=== PATIENT | male | born 1965 | race Caucasian/White ===

== ENCOUNTER 2017-03-21 10:16 | Emergency (ER) | payer SELFPAY ==
[~2017-03-21] VITALS: Ht 175.3 cm; Wt 82.0 kg
[~2017-03-21 10:16] MED LIST: BACT800T5 PO
[2017-03-21 10:19] VITALS: BP 157/77; TEMP 99.5
--- NOTE | 2017-03-21 11:46 | PD ---
HPI Chief Complaint: Injury Time Seen by Provider: 11:46 Travel History International Travel<30 days: No Contact w/Intl Traveler<30days: No Traveled to known affect area: No PFSH Past Medical History Diminished Hearing: No Kidney Stones: Yes Past Surgical History Other Surgery: Yes (stone removal) Social History Alcohol Use: No Tobacco Use: Yes (1.5 PPD) Substance Use: No Allergies-Medications (Allergen,Severity, Reaction): Coded Allergies: No Known Allergies (Unverified , 07/22/15) Reported Meds & Prescriptions Reported Meds & Active Scripts Active Bactrim DS (Sulfamethoxazole-Trimethoprim DS) 1 Tab Tab 1 Tab PO Q12 10 Days Data Data Last Documented VS Vital Signs Date Time Temp Pulse Resp B/P (MAP) Pulse Ox O2 Delivery O2 Flow Rate FiO2 03/21/17 10:19 99.5 110 22 157/77 (103) Orders Orders Elbow, Complete (4 Vws) (03/21/17 11:51) Osorio Crowe Mar 21, 2017 11:46
[2017-03-21 12:40] VITALS: BP 125/77; PULSE 78; RESP 19; TEMP 99.1; O2SAT 96
--- NOTE | 2017-03-21 12:44 | RADRPT ---
EXAM DATE/TIME: 03/21/2017 12:14 [facility] COMPARISON: No previous studies available for comparison. INDICATIONS : Tripped and fell, complains of right elbow pain. MEDICAL HISTORY : None. SURGICAL HISTORY : None. ENCOUNTER: Initial ACUITY: 1 day PAIN SCORE: 10/10 LOCATION: Right elbow FINDINGS: There is deformity at the elbow without obvious fracture. Degenerative changes are noted. CONCLUSION: Limited secondary to deformity, negative for fracture. Mickey Birmingham MD FACR on March 21, 2017 at 12:42 Board Certified Radiologist. This report was verified electronically.
--- NOTE | 2017-03-21 12:47 | PD ---
HPI . right elbow pain Chief Complaint: Injury Time Seen by Provider: 12:38 Travel History International Travel<30 days: No Contact w/Intl Traveler<30days: No Traveled to known affect area: No History of Present Illness HPI 51-year-old male here with complaints of right elbow pain. Patient tells me he was out of his yard working on a car when he actually somehow slipped right elbow. His julito supposedly gave him some medication, thus causing increased drowsiness at this current time. Patient has made a call to his friend reports that the medication was gabapentin 600 mg. The patient has taken 4 tablets. He has no other complaints at this time. PFS Past Medical History Diminished Hearing: No Kidney Stones: Yes Past Surgical History Other Surgery: Yes (stone removal) Social History Alcohol Use: No Tobacco Use: Yes (1.5 PPD) Substance Use: No Allergies-Medications (Allergen,Severity, Reaction): Coded Allergies: No Known Allergies (Unverified , 03/21/17) Reported Meds & Prescriptions Reported Meds & Active Scripts Active Naproxen 500 Mg Tab 500 Mg PO BID Review of Systems General / Constitutional: No: Fever Eyes: No: Visual changes HENT: No: Headaches Cardiovascular: No: Chest Pain or Discomfort Respiratory: No: Shortness of Breath Gastrointestinal: No: Abdominal Pain Genitourinary: No: Dysuria Musculoskeletal: Positive: Pain (right elbow pain ) Skin: No Rash Neurologic: No: Weakness Psychiatric: No: Depression Endocrine: No: Polydipsia Hematologic/Lymphatic: No: Easy Bruising Physical Exam Narrative GENERAL: AAO x 3, no acute distress, Well-nourished, well-developed patient. resting comfortably, awakens when spoken to and answers questions appropriately SKIN: Warm and dry. No visible rashes or bruising. HEAD: Normocephalic and atraumatic. EYES: No scleral icterus. No injection or drainage. ENT: No nasal drainage noted. Mucous membranes pink. Airway patent. NECK: Supple, trachea midline. No JVD. CARDIOVASCULAR: Regular rate and rhythm without murmurs, gallops, or rubs. RESPIRATORY: Breath sounds equal bilaterally. No accessory muscle use. No rhonchi or rales. GASTROINTESTINAL: Abdomen soft, non-tender, nondistended. EXTREMITIES: No cyanosis, right elbow with ++ edema, tender to touch and limited ROM due to pain. BACK: Nontender without obvious deformity. No CVA tenderness. NEURO: CN II-12 intact, PSYCH: AAO x 3, Data Data Last Documented VS Vital Signs Date Time Temp Pulse Resp B/P (MAP) Pulse Ox O2 Delivery O2 Flow Rate FiO2 03/21/17 15:53 83 17 138/78 (98) 95 03/21/17 15:50 Room Air 03/21/17 12:40 99.1 Orders Orders Elbow, Complete (4 Vws) (03/21/17 11:51) Ct Elbow W/O Contrast (03/21/17 ) Complete Blood Count With Diff (03/21/17 13:59) Basic Metabolic Panel (Bmp) (03/21/17 13:59) Westergren Sedimentation Rate (03/21/17 13:59) C-Reactive Protein (Crp) (03/21/17 13:59) Labs Laboratory Tests Test 03/21/17 14:20 White Blood Count 12.0 TH/MM3 Red Blood Count 5.17 MIL/MM3 Hemoglobin 14.9 GM/DL Hematocrit 45.5 % Mean Corpuscular Volume 87.9 FL Mean Corpuscular Hemoglobin 28.8 PG Mean Corpuscular Hemoglobin Concent 32.8 % Red Cell Distribution Width 13.5 % Platelet Count 224 TH/MM3 Mean Platelet Volume 6.8 FL Neutrophils (%) (Auto) 68.8 % Lymphocytes (%) (Auto) 18.5 % Monocytes (%) (Auto) 11.8 % Eosinophils (%) (Auto) 0.4 % Basophils (%) (Auto) 0.5 % Neutrophils # (Auto) 8.2 TH/MM3 Lymphocytes # (Auto) 2.2 TH/MM3 Monocytes # (Auto) 1.4 TH/MM3 Eosinophils # (Auto) 0.1 TH/MM3 Basophils # (Auto) 0.1 TH/MM3 CBC Comment DIFF FINAL Differential Comment Erythrocyte Sedimentation Rate 5 mm/hr Blood Urea Nitrogen 8 MG/DL Creatinine 0.93 MG/DL Random Glucose 102 MG/DL Calcium Level 8.4 MG/DL Sodium Level 137 MEQ/L Potassium Level 3.7 MEQ/L Chloride Level 101 MEQ/L Carbon Dioxide Level 29.7 MEQ/L Anion Gap 6 MEQ/L Estimat Glomerular Filtration Rate 86 ML/MIN C-Reactive Protein 1.34 MG/DL MDM Medical Decision Making Medical Screen Exam Complete: Yes Emergency Medical Condition: Yes Medical Record Reviewed: Yes Differential Diagnosis dislocation, fracture, soft tissue injury, septic arthritis, Narrative Course 51 yr old male here with right elbow pain s/p fall. Imaging ordered. Last Impressions Elbow X-Ray 03/21/17 1151 Signed Impressions: Service Date/Time: Tuesday, March 21, 2017 12:14 - CONCLUSION: Limited secondary to deformity, negative for fracture. Mickey Birmingham MD FACR CT without any abnormality. I discussed the case with my attending. We have ordered labs to assess for possibility of septic arthritis. Case was discussed with my attending Dr. Pan who will disposition the patient. Diagnosis Primary Impression: Elbow pain, right Patient Instructions: General Instructions Scripts Naproxen (Naproxen) 500 Mg Tab 500 MG PO BID, #10 TAB 0 Refills Prov: Yovana Pan MD 03/21/17 Disposition: 01 DISCHARGE HOME Condition: Stable Amy Tom Mar 21, 2017 12:47
--- NOTE | 2017-03-21 13:53 | RADRPT ---
EXAM DATE/TIME: 03/21/2017 13:28 [facility] COMPARISON: No previous studies available for comparison. INDICATIONS : Trauma; right elbow pain. RADIATION DOSE: 19.07 CTDIvol (mGy) MEDICAL HISTORY : None SURGICAL HISTORY : None. ENCOUNTER: Initial ACUITY: 1 day PAIN SCALE: 8/10 LOCATION: Right elbow. TECHNIQUE: Volumetric scanning of the elbow was performed. Using automated exposure control and adjustment of t he mA and/or kV according to patient size, radiation dose was kept as low as reasonably achievable to obtain optimal diagnostic quality images. DICOM format image data is available electronically for r eview and comparison. FINDINGS: Exam is limited by positioning and habitus. Degenerative changes are evident. Displaced fracture is not appreciated. There is no significant joint effusion. CONCLUSION: Degenerative changes, negative for fracture.. Mickey Birmingham MD FACR on March 21, 2017 at 13:50 Board Certified Radiologist. This report was verified electronically.
[2017-03-21 14:46] LABS: AUTOMATED NEUTROPHIL # 8.2 TH/MM3 (1.8-7.7); BASOPHIL # 0.1 TH/MM3 (0-0.2); BASOPHIL % 0.5 % (0.0-2.0); EOSINOPHIL # 0.1 TH/MM3 (0-0.4); EOSINOPHIL % 0.4 % (0.0-4.0); HEMATOCRIT 45.5 % (39.0-51.0); HEMO FLAGS DIFF FINAL; LYMPH % 18.5 % (9.0-44.0); LYMPHOCYTE # 2.2 TH/MM3 (1.0-4.8); MEAN CELL VOLUME 87.9 FL (80.0-100.0); MEAN CORPUSCULAR HEMOGLOBIN 28.8 PG (27.0-34.0); MEAN CORPUSCULAR HGB CONC 32.8 % (32.0-36.0); MONO % 11.8 % (0.0-8.0); NEUT % 68.8 % (16.0-70.0); PLATELET COUNT 224 TH/MM3 (150-450); RED BLOOD COUNT 5.17 MIL/MM3 (4.50-5.90); RED CELL DISTRIBUTION WIDTH 13.5 % (11.6-17.2)
[2017-03-21] MEDS ORDERED: NAPR500T PO (14:58)
--- NOTE | 2017-03-21 14:58 | PD ---
Data Data Last Documented VS Vital Signs Date Time Temp Pulse Resp B/P (MAP) Pulse Ox O2 Delivery O2 Flow Rate FiO2 03/21/17 12:40 18 03/21/17 12:40 99.1 78 125/77 (93) 96 Orders Orders Elbow, Complete (4 Vws) (03/21/17 11:51) Ct Elbow W/O Contrast (03/21/17 ) Complete Blood Count With Diff (03/21/17 13:59) Basic Metabolic Panel (Bmp) (03/21/17 13:59) Westergren Sedimentation Rate (03/21/17 13:59) C-Reactive Protein (Crp) (03/21/17 13:59) Labs Laboratory Tests Test 03/21/17 14:20 White Blood Count 12.0 TH/MM3 Red Blood Count 5.17 MIL/MM3 Hemoglobin 14.9 GM/DL Hematocrit 45.5 % Mean Corpuscular Volume 87.9 FL Mean Corpuscular Hemoglobin 28.8 PG Mean Corpuscular Hemoglobin Concent 32.8 % Red Cell Distribution Width 13.5 % Platelet Count 224 TH/MM3 Mean Platelet Volume 6.8 FL Neutrophils (%) (Auto) 68.8 % Lymphocytes (%) (Auto) 18.5 % Monocytes (%) (Auto) 11.8 % Eosinophils (%) (Auto) 0.4 % Basophils (%) (Auto) 0.5 % Neutrophils # (Auto) 8.2 TH/MM3 Lymphocytes # (Auto) 2.2 TH/MM3 Monocytes # (Auto) 1.4 TH/MM3 Eosinophils # (Auto) 0.1 TH/MM3 Basophils # (Auto) 0.1 TH/MM3 CBC Comment DIFF FINAL Differential Comment [facility] Supervised Visit with MARTHA: Yes Narrative Course The history, exam, and medical decision-making in the associated midlevel provider note were completed with my assistance. I reviewed and agree with the findings presented. I attest that I had a [id number] encounter with the patient on the same day, and personally performed and documented my assessment and findings in the medical record. *My assessment and Findings: This is an 51-year-old male who presents to the emergency department with right elbow pain. He says he fell and landed on his right elbow yesterday. He has moderate severity pain when you range the elbow. He has no obvious effusion or warmth. X-ray was obtained and was limited so a was performed. There is no effusion on the CT to suggest a septic arthritis and there is no occult fracture. I suspect the patient has a contusion. I was a little concerned as he had a low-grade temperature and he was seen earlier this year in the setting of a forearm abscess. He adamantly denies IV drug use and given there is no effusion on the elbow but this reflects septic arthritis. I think he's safe for discharge. Diagnosis Primary Impression: Elbow contusion Qualified Codes: S50.01XA - Contusion of right elbow, initial encounter Patient Instructions: General Instructions Additional Instruction: If you develop swelling, severe pain, numbness or coolness of the arm return to the emergency department. Med/Other Pt SpecificInfo: Prescription(s) given Scripts Naproxen (Naproxen) 500 Mg Tab 500 MG PO BID, #10 TAB 0 Refills Prov: Yovana Pan MD 03/21/17 Disposition: 01 DISCHARGE HOME Condition: Stable Yovana Pan MD Mar 21, 2017 14:58
[2017-03-21 15:14] LABS: BICARBONATE 29.7 MEQ/L (21.0-32.0); POTASSIUM 3.7 MEQ/L (3.5-5.1)
[2017-03-21 15:50] VITALS: BP 138/78; PULSE 83; RESP 17; O2SAT 95
[2017-03-21 15:53] VITALS: BP 138/78
== END 2017-03-21 15:59 | disposition home or self-care (01) ==
LOC: NEPD 10:16
DX: S50.01XA Contusion of right elbow, initial encounter (principal); F17.200 Nicotine dependence, unspecified, uncomplicated; Z87.442 Personal history of urinary calculi; W01.0XXA Fall on same level from slipping, tripping and stumbling without subsequent striking against object, initial encounter; Y92.096 Garden or yard of other non-institutional residence as the place of occurrence of the external cause
CPT/HCPCS: 73080; 73200; 80048; 85025; 85652; 86140; 99285

== ENCOUNTER 2017-06-14 15:10 | Emergency (ER) | payer SELFPAY ==
[~2017-06-14] VITALS: Ht 177.8 cm; Wt 95.0 kg
[~2017-06-14 15:10] MED LIST changes: -BACT800T5 PO; +NAPR500T2 PO
[2017-06-14 15:11] VITALS: BP 121/96; PULSE 95; RESP 18; TEMP 98.2; O2SAT 98
[2017-06-14] MEDS ORDERED: CEPHALEXIN MONOHYDRATE 500 MG CAP PO ONE (15:45)
[2017-06-14] MEDS ORDERED: IBUP-232 PO (15:45)
[2017-06-14] MEDS ORDERED: oxyCODONE/ACETAMINOPHEN 5 MG/325 MG TAB PO ONE (15:45)
[2017-06-14] MEDS ORDERED: PERC5TAB12 PO (15:45)
[2017-06-14] MEDS ORDERED: SULFAMETHOXAZOLE-TRIMETHOPRIM DS 800-160 MG TAB PO ONE (15:45)
[2017-06-14] MEDS ORDERED: CEPH-460 PO (15:45)
[2017-06-14] MEDS ORDERED: BACT800T5 PO (15:45)
[2017-06-14] MEDS ORDERED: MUPI2%T TOPICAL (15:47)
--- NOTE | 2017-06-14 15:47 | PD ---
HPI Chief Complaint: Laceration/Skin Injury Time Seen by Provider: 15:25 Travel History International Travel<30 days: No Contact w/Intl Traveler<30days: No Traveled to known affect area: No History of Present Illness HPI Patient is a 51 year old male who presents to the ER with complaints of laceration to right thigh. patient reports that 4 days ago, he was using a circular saw and accidently cut his right thigh with it. Reports that he used crazy glue to glue together his laceration. Reports that the crazy glue is falling off now and his laceration appears infected. Reports that tetanus is up to date (updated last year). Denies fever/chills. No other c/o. PFSH Past Medical History Diminished Hearing: No Genitourinary: Yes Kidney Stones: Yes Tetanus Vaccination: < 5 Years Influenza Vaccination: No Past Surgical History Other Surgery: Yes (stone removal) Social History Alcohol Use: No Tobacco Use: Yes (1.5 PPD) Substance Use: No Allergies-Medications (Allergen,Severity, Reaction): Coded Allergies: No Known Allergies (Verified Adverse Reaction, Unknown, 06/14/17) Reported Meds & Prescriptions Reported Meds & Active Scripts Active No Active Prescriptions or Reported Medications Review of Systems Except as stated in HPI: all other systems reviewed are Neg General / Constitutional: No: Fever, Chills Eyes: No: Visual changes HENT: No: Headaches Cardiovascular: No: Chest Pain or Discomfort Respiratory: No: Shortness of Breath Gastrointestinal: No: Abdominal Pain Genitourinary: No: Dysuria Musculoskeletal: No: Pain Skin: Positive Other (laceration to right thigh), No Rash Neurologic: No: Weakness Psychiatric: No: Depression Endocrine: No: Polydipsia Hematologic/Lymphatic: No: Easy Bruising Physical Exam Narrative GENERAL: Well-nourished, well-developed patient. SKIN: Focused skin assessment warm/dry. HEAD: Normocephalic. EYES: No scleral icterus. No injection or drainage. NECK: Supple, trachea midline. No JVD or lymphadenopathy. CARDIOVASCULAR: Regular rate and rhythm without murmurs, gallops, or rubs. RESPIRATORY: Breath sounds equal bilaterally. No accessory muscle use. GASTROINTESTINAL: Abdomen soft, non-tender, nondistended. MUSCULOSKELETAL: No cyanosis, or edema. Patient with 5cm linear laceration to right thigh, there is areas of open skin with thick purulent drainage with surrounding erythema BACK: Nontender without obvious deformity. No CVA tenderness. Data Data Last Documented VS Vital Signs Date Time Temp Pulse Resp B/P (MAP) Pulse Ox O2 Delivery O2 Flow Rate FiO2 06/14/17 15:21 17 06/14/17 15:11 98.2 95 121/96 (104) 98 Orders Orders Cephalexin (Keflex) (06/14/17 15:45) Sulfamet-Trimeth Ds 800-160 Mg (Bactrim (06/14/17 15:45) Oxycodone-Acetamin 5-325 Mg (Percocet (06/14/17 15:45) MDM Medical Decision Making Medical Screen Exam Complete: Yes Emergency Medical Condition: Yes Medical Record Reviewed: Yes Interpretation(s) Vital Signs Date Time Temp Pulse Resp B/P (MAP) Pulse Ox O2 Delivery O2 Flow Rate FiO2 06/14/17 15:21 17 06/14/17 15:11 98.2 95 18 121/96 (104) 98 Differential Diagnosis Laceration, infection Narrative Course 51-year-old male who presents to emergency room with complaints of laceration to his right thigh. Patient reports that this happened 4 days ago, he did use superglue to put bring together this laceration. Patient reports that today, superglue was falling off and his laceration appears infected. On evaluation, there is thick yellow purulence draining from his wound site. Discussed with patient at this time, I cannot suture up his laceration as it is 4 days old, it will need to heal by secondary intention. Plan to start patient on antibiotics , he will return to the emergency room in 48 hours for wound check. Signs and symptoms of when to return to the emergency room including fevers, chills was reviewed with patient in detail. Tetanus was updated last year. Diagnosis Primary Impression: Infected laceration Additional Impression: Cellulitis Patient Instructions: General Instructions, Narcotic given in the ED Additional Instructions: Please take all medications as prescribed Return to the emergency room if you develop any fevers or chills or worsening or progressing symptoms Please return to the emergency room in 48 hours for wound check Return to the emergency room as needed Keep wound clean and covered Med/Other Pt SpecificInfo: Prescription(s) given, Wound Care Scripts Mupirocin Topical (Bactroban Topical) 22 Gm Cream 1 APPLIC TOPICAL BID for Mgmt Bacterial Infection, #1 TUBE 0 Refills Prov: Ella Escobedo DO 06/14/17 Oxycodone-Acetaminophen (Percocet) 5-325 mg Tab 1 TAB PO Q6H Y for PAIN, #7 TAB 0 Refills Prov: Ella Escobedo DO 06/14/17 Ibuprofen (Ibuprofen) 600 Mg Tab 600 MG PO Q6H Y for Pain/Inflammation, #40 TAB 0 Refills Prov: Ella Escobedo DO 06/14/17 Cephalexin (Keflex) 500 Mg Cap 500 MG PO Q6H for Infection for 10 Days, #40 CAP 0 Refills Prov: Ella Escobedo DO 06/14/17 Sulfamethoxazole-Trimethoprim (Bactrim DS) 800-160 Mg Tab 1 TAB PO BID for Infection for 10 Days, #20 TAB 0 Refills Prov: Ella Escobedo DO 06/14/17 Disposition: 01 DISCHARGE HOME Condition: Stable Ella Escobedo DO Jun 14, 2017 15:47
[2017-06-14 16:00] VITALS: BP 133/77; TEMP 98.2
== END 2017-06-14 16:00 | disposition home or self-care (01) ==
LOC: NEPD 15:10
DX: L03.115 Cellulitis of right lower limb (principal); F17.200 Nicotine dependence, unspecified, uncomplicated
CPT/HCPCS: 99284

== ENCOUNTER 2017-08-27 23:47 | Emergency (ER) | payer SELFPAY ==
[~2017-08-27] VITALS: Ht 175.3 cm; Wt 85.0 kg
[~2017-08-27 23:47] MED LIST changes: +BACT800T5 PO; +CEPH-460 PO; +IBUP-232 PO; +MUPI2%T TOPICAL; -NAPR500T2 PO; +PERC5TAB12 PO
[2017-08-27 23:48] VITALS: BP 155/107; PULSE 101; RESP 22; TEMP 99; O2SAT 99
--- NOTE | 2017-08-28 01:02 | RADRPT ---
EXAM DATE/TIME: 08/28/2017 00:49 [facility] COMPARISON: No previous studies available for comparison. INDICATIONS : Proximal forearm pain from trauma sustained in a fall. MEDICAL HISTORY : None. SURGICAL HISTORY : None. ENCOUNTER: Initial ACUITY: 1 day PAIN SCORE: 10/10 LOCATION: Left forearm FINDINGS: 2 views of the left forearm demonstrate no fracture or dislocation. Mineralization is within normal l imits. No soft tissue abnormality or radiopaque foreign body is identified. CONCLUSION: No acute abnormality is identified. Louis Greenberg MD on August 28, 2017 at 0:59 Board Certified Radiologist. This report was verified electronically.
[2017-08-28] MEDS ORDERED: IBUP1TAB7 PO (03:13)
[2017-08-28] MEDS ORDERED: CYCL10TA PO (03:13)
--- NOTE | 2017-08-28 03:13 | PD ---
HPI Chief Complaint: Injury Time Seen by Provider: 02:55 Travel History International Travel<30 days: No Contact w/Intl Traveler<30days: No Traveled to known affect area: No History of Present Illness HPI Patient is a 51-year-old male presenting to the emergency department for evaluation of left forearm pain. Patient states that he was working on his truck when he stepped off, falling back onto his left arm. Injury occurred approximately 4 hours ago. Other pain or injuries. He denies any head injury or loss of consciousness, chest pain, shortness of breath. Patient is not taking anything to alleviate the pain. Pain is exacerbated with movement, onset of symptoms was sudden, pain is dull and throbbing in nature. Pain is reported at a 6 out of 10. Again past medical history. PFSH Past Medical History Medical History: Denies Significant Hx Kidney Stones: Yes Past Surgical History Other Surgery: Yes (stone removal) Social History Alcohol Use: No Tobacco Use: Yes (1.5 PPD) Substance Use: No Allergies-Medications (Allergen,Severity, Reaction): Coded Allergies: No Known Allergies (Verified Adverse Reaction, Unknown, 08/28/17) Reported Meds & Prescriptions Reported Meds & Active Scripts Active Flexeril (Cyclobenzaprine HCl) 10 Mg Tab 10 Mg PO TID PRN Ibuprofen 800 Mg Tab 800 Mg PO Q6HR PRN Bactroban Topical (Mupirocin) 22 Gm Cream 1 Applic TOPICAL BID Percocet (Oxycodone-Acetaminophen) 5-325 mg Tab 1 Tab PO Q6H PRN Ibuprofen 600 Mg Tab 600 Mg PO Q6H PRN Keflex (Cephalexin) 500 Mg Cap 500 Mg PO Q6H 10 Days Bactrim DS (Sulfamethoxazole-Trimethoprim) 800-160 Mg Tab 1 Tab PO BID 10 Days Review of Systems Except as stated in HPI: all other systems reviewed are Neg Musculoskeletal: Positive: Myalgias, Edema, Pain Physical Exam Narrative GENERAL: Well-developed, well-nourished, alert male. Presenting in no acute distress. SKIN: Warm and dry. HEAD: Normocephalic. EYES: No scleral icterus. No injection or drainage. NECK: Supple, trachea midline. No JVD or lymphadenopathy. CARDIOVASCULAR: Regular rate and rhythm without murmurs, gallops, or rubs. RESPIRATORY: Breath sounds equal bilaterally. No accessory muscle use. GASTROINTESTINAL: Abdomen soft, non-tender, nondistended. MUSCULOSKELETAL: No cyanosis, mild edema noted to the mid anterior forearm. Moderately tender to palpation, decreased range of motion with rotation t of left wrist. 2+ radial pulse. BACK: Nontender without obvious deformity. No CVA tenderness. Data Data Last Documented VS Vital Signs Date Time Temp Pulse Resp B/P (MAP) Pulse Ox O2 Delivery O2 Flow Rate FiO2 08/27/17 23:48 99.0 101 22 155/107 (123) 99 Room Air Orders Orders Forearm (2vws) (08/28/17 00:29) Ketorolac Inj (Toradol Inj) (08/28/17 03:15) Orphenadrine Inj (Norflex Inj) (08/28/17 03:15) Ice/Cold Pack (08/28/17 03:13) Ed Discharge Order (08/28/17 03:39) MDM Medical Decision Making Medical Screen Exam Complete: Yes Emergency Medical Condition: Yes Interpretation(s) Vital Signs Date Time Temp Pulse Resp B/P (MAP) Pulse Ox O2 Delivery O2 Flow Rate FiO2 08/27/17 23:48 99.0 101 22 155/107 (123) 99 Room Air Differential Diagnosis Fracture versus sprain versus strain versus contusion versus other Narrative Course Patient is a 51-year-old male presented to the emergency room for evaluation of left forearm pain after sustaining a mechanical fall. Patient is neurovascularly intact. Imaging was ordered while patient was waiting in triage. Imaging is negative for acute fracture. Exam appears most consistent with a contusion, patient will be given Toradol and Norflex now. Will reassess. Diagnosis Primary Impression: Contusion of forearm, left Qualified Codes: S50.12XA - Contusion of left forearm, initial encounter Referrals: Primary Care Physician Patient Instructions: Contusion in Adults (ED), General Instructions Additional Instructions: Alternate heat and ice to the affected area, continue range of motion exercises , avoid exacerbating activities, avoid bed rest Take medications as directed Return to emergency department for any new or worsening symptoms Follow up with your primary doctor Med/Other Pt SpecificInfo: Prescription(s) given Scripts Cyclobenzaprine (Flexeril) 10 Mg Tab 10 MG PO TID Y for MUSCLE SPASM, #30 TAB 0 Refills Prov: Sabine Garcia 08/28/17 Ibuprofen (Ibuprofen) 800 Mg Tab 800 MG PO Q6HR Y for PAIN, #40 TAB 0 Refills Prov: Sabine Garcia 08/28/17 Disposition: 01 DISCHARGE HOME Condition: Stable Sabine Garcia Aug 28, 2017 03:13
[2017-08-28] MEDS ORDERED: ORPHENADRINE INJ 60 MG/2 ML AMP IM ONE (03:15)
[2017-08-28] MEDS ORDERED: KETOROLAC TROMETHAMINE 60 MG/2 ML (IM) VIAL IM ONE (03:15)
== END 2017-08-28 04:50 | disposition home or self-care (01) ==
LOC: NEPD 23:47
DX: S50.12XA Contusion of left forearm, initial encounter (principal); F17.210 Nicotine dependence, cigarettes, uncomplicated; W19.XXXA Unspecified fall, initial encounter
CPT/HCPCS: 73090; 96372; 99283; J1885; J2360